=== PATIENT | male | born 2000 | race Caucasian/White ===

== ENCOUNTER 2018-06-25 00:35 | Emergency (ER) | payer OTHER ==
[~2018-06-25] VITALS: Ht 170.2 cm; Wt 72.6 kg
[2018-06-25 00:40] VITALS: BP_SYST 75
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
--- NOTE | 2018-06-25 00:40 | NUR ---
TO BED # 3 AMBULATORY , REPORT GIVEN TO MARYLU TALAMANTES
[2018-06-25 02:52] LABS: APPEARANCE,URINE CLEAR (CLEAR); BILIRUBIN,URINE NEGATIVE (NEGATIVE); BLOOD, URINE NEGATIVE (NEGATIVE); COLOR,URINE YELLOW (YELLOW); LEUKOCYTE ESTERASE ,URINE NEGATIVE (NEGATIVE); NITRITE, URINE NEGATIVE (NEGATIVE); PH,URINE 6.5 (5.0-9.0); UGLUCOSE NEGATIVE (NEGATIVE)
[2018-06-25 03:00] VITALS: BP_SYST 75
== END 2018-06-25 03:00 | disposition home or self-care (01) ==
LOC: MED 00:35
DX: S39.94XA Unspecified injury of external genitals, initial encounter (principal); N43.3 Hydrocele, unspecified; W21.05XA Struck by basketball, initial encounter; Y93.67 Activity, basketball; Y92.89 Other specified places as the place of occurrence of the external cause; Y99.8 Other external cause status
CPT/HCPCS: 76870; 81003; 99285; Q0092

== ENCOUNTER 2018-12-25 23:21 | Emergency (ER) | payer OTHER ==
[~2018-12-25] VITALS: Ht 172.7 cm; Wt 68.0 kg
[2018-12-25 23:26] VITALS: BP 134/81
--- NOTE | 2018-12-25 23:28 | NUR ---
TO LOBBY A/W BED, LEON PRADO NOTED
--- NOTE | 2018-12-25 23:30 | NUR ---
PT AMBULATORY TO BED 3 W/ STEADY GAIT.
--- NOTE | 2018-12-25 23:30 | NUR ---
PT PRESENTS TO ED C/O LLQ ABD PAIN X6 HRS. NO N/V/D. X4 QUADRANT BOWEL SOUNDS PRESENT. SOFT AND NON TENDER. NO MASSES FELT. AFEBRILE. VSS. SHARP CONTINUOUS PAIN. SUDDEN ONSET. NO PAST MEDICAL HX. POSITIONED IN BED FOR COMFORT. ER MD AWARE. CONTINUE TO MONITOR.
--- NOTE | 2018-12-25 23:31 | NUR ---
Deidra mckeon in [facility] - 12/25/18 at 2331 by [facility] PT AMBULATED TO BED .
[2018-12-26 00:30] VITALS: BP 130/69
== END 2018-12-26 00:30 | disposition home or self-care (01) ==
LOC: MED 23:21
DX: K59.00 Constipation, unspecified (principal); R11.2 Nausea with vomiting, unspecified; F12.10 Cannabis abuse, uncomplicated
CPT/HCPCS: 74018; 99283; Q0092